=== PATIENT | male | born 1950 | race Caucasian/White ===

== ENCOUNTER → 2020-05-28 | Outpatient (CLI) | payer MEDICARE ==
--- NOTE | 2020-05-29 08:24 | EST ---
EXERCISE STRESS AGE: 69 SEX: M HT: 72" WT: 240 PROTOCOL: Alec STAGE: 2 DURATION OF EXERCISE: 6:00 HEART RATE REST: 90 BLOOD PRESSURE REST: 160/94 MAXIMUM HEART RATE ACHIEVED: 145 MAXIMUM BLOOD PRESSURE: 199/91 85% MPHR: 128 100% MPHR: 151 METS: 7.1 INDICATIONS: Hypertension. CLINICAL INFORMATION: History of hypertension. Baseline heart rate 90 beats per minute. Baseline blood pressure 160/94 mmHg. Patient exercised on Alec protocol. Baseline 12-lead ECG showed normal sinus rhythm, normal cardiac intervals. Patient exercised on a Alec protocol for 6 minutes, achieving a peak heart rate of 145 beats per minute. Baseline blood pressure 160/94 mmHg. Peak blood pressure 199/91 mmHg. There was no ECG evidence for ischemia. Occasional PVCs were noted. IMPRESSION: Average exercise capacity. No definite ECG evidence for ischemia. Occasional PVCs. MMODL / IJN: [id number] /
== END | disposition home or self-care (01) ==
LOC: RADNMMAIN 10:29
PROVIDERS: ATTEND Family Medicine
DX: I10 Essential (primary) hypertension (principal)
CPT/HCPCS: 93017

== ENCOUNTER → 2023-07-05 | Outpatient (CLI) | payer MEDICARE ==
--- NOTE | 2023-07-05 14:52 | US ---
EXAMINATION TYPE: US venous doppler duplex LE LT DATE OF EXAM: 07/05/2023 1:37 PM COMPARISON: NONE CLINICAL INDICATION: Male, 72 years old with history of M79.662 PAIN IN LEFT LOWER LEG; Pain left leg SIDE PERFORMED: left TECHNIQUE: The lower extremity deep venous system is examined utilizing real time linear array sonog johnnie with graded compression, doppler sonography and color-flow sonography. VESSELS IMAGED: Common Femoral Vein Deep Femoral Vein Greater Saphenous Vein * Femoral Vein Popliteal Vein Small Saphenous Vein * Proximal Calf Veins (* superficial vessels) Left Leg: No evidence of DVT as visualized IMPRESSION: 1. Left lower extremity ultrasound negative for deep venous thrombosis.
== END | disposition home or self-care (01) ==
LOC: RADUSWWP 13:12
PROVIDERS: ATTEND Family Medicine
DX: M79.662 Pain in left lower leg (principal)

== ENCOUNTER 2024-07-01 06:51 | Day surgery (SDC) | payer MEDICARE ==
[2024-07-01 07:36] VITALS: TEMP 96.6
[2024-07-01] MEDS: LACTATED RINGERS 1,000 ML IV SCH (07:44)
[2024-07-01] MEDS: IV FLUID CONTINUATION 1,000 ML IV ONE (07:44)
[2024-07-01] MEDS ORDERED: PROPOFOL 10 MG/ML 20 ML VIAL IV ONE (08:36)
[2024-07-01] MEDS ORDERED: LIDOCAINE 1% INJ 10MG/ML (20 ML MDV) ONE (08:36)
[2024-07-01 09:19] VITALS: BP 123/71; PULSE 77; RESP 16
--- NOTE | 2024-07-01 15:24 | P.OP ---
Date of Procedure: 07/01/24 Preoperative Diagnosis: Screening Colonoscopy Postoperative Diagnosis: 1. Diverticulosis 2. External Hemorrhoids Procedure(s) Performed: Colonoscopy Anesthesia: other (Sedation) Surgeon: Jaciel Davies Pathology: none sent Condition: stable Disposition: PACU Indications for Procedure: This is a 73 year old male who presents for screening colonoscopy. He denies hematochezia, melena, IBD, or family history of colon cancer. Description of Procedure: A physical exam was performed. Informed consent was obtained from the patient after explaining all of the risks (perforation, bleeding, infection and adverse effects to the medication), benefits and alternatives to the procedure which the patient appeared to understand and so stated. The patient was connected to the monitoring devices and placed in the left lateral position. Continuous oxygen was provided with a nasal cannula and IV medicine administered through an indwelling cannula. After adequate conscious sedation was achieved, a digital exam was performed which revealed external hemorrhoids and the colonoscope in troduced into the rectum and advanced under direct visualization to the terminal ileum. The terminal ileum was identified by visual landmarks. The scope was subsequently removed slowly while carefully examining the color, texture, anatomy and integrity of the mucosa on the way out. There was diverticulosis noted in the sigmoid colon. In the rectum, the scope was retroflexed to evaluate for internal hemorrhoids and anorectal pathology. There were no internal hemorrhoids appreciated. This concluded the procedure. The patient was subsequently transferred to the recovery area in satisfactory condition Recommendations: 1. Daily Fiber Supplement 2. Repeat Colonoscopy in 10 years
== END 2024-07-01 09:44 | disposition home or self-care (01) ==
LOC: ORWHC2ENDO 06:51
PROVIDERS: ATTEND Surgery
DX: Z12.11 Encounter for screening for malignant neoplasm of colon (principal); K57.30 Diverticulosis of large intestine without perforation or abscess without bleeding; K64.4 Residual hemorrhoidal skin tags; I10 Essential (primary) hypertension; K21.9 Gastro-esophageal reflux disease without esophagitis; Z79.899 Other long term (current) drug therapy; Z88.6 Allergy status to analgesic agent
CPT/HCPCS: 45378